=== PATIENT | male | born 1965 | race Caucasian/White ===

== ENCOUNTER 2018-05-25 18:48 | Emergency (ER) | payer BC ==
[~2018-05-25] VITALS: Ht 182.9 cm; Wt 125.0 kg
[2018-05-25] MEDS ORDERED: ONDANSETRON 2MG/ML, 2ML IVPush ONE (19:00)
[2018-05-25] MEDS ORDERED: SODIUM CHLORIDE FLUSH 10ML SYR IVF ONE (19:00)
[2018-05-25] MEDS ORDERED: ONDANSETRON 2MG/ML, 2ML ONE (19:08)
[2018-05-25 19:16] LABS: BASOPHILS # (AUTO) 0.03 x10^3/uL (0-0.1); BASOPHILS % (AUTO) 0 % (0-1); EOSINOPHILS # (AUTO) 0.09 x10^3/uL (0-0.4); EOSINOPHILS % (AUTO) 1 % (1-7); LYMPHOCYTES # (AUTO) 1.15 x10^3/uL (1-3.4); LYMPHOCYTES % (AUTO) 10 % (22-44); MD NO; MEAN CORPUSCULAR HEMOGLOBIN 34.7 pg (27.5-34.5); MEAN CORPUSCULAR HGB CONC 35.2 g/dL (33.2-36.2); MEAN CORPUSCULAR VOLUME 98.6 fL (81-97); MEAN PLATELET VOLUME 8.8 fL (7.4-10.4); MONOCYTES # (AUTO) 0.72 x10^3/uL (0.2-0.8); MONOCYTES % (AUTO) 7 % (2-9); NEUTROPHILS # (AUTO) 9.17 x10^3/uL (1.8-6.8); NEUTROPHILS % (AUTO) 82 % (42-75); PLATELET COUNT 237 x10^3/uL (130-400); RED BLOOD COUNT 4.31 x10^6/uL (4.38-5.82); RED CELL DISTRIBUTION WIDTH 14.1 % (9.4-14.8)
[2018-05-25 19:27] LABS: ALBUMIN 4.4 g/dL (3.4-5.0); ANION GAP 7 mmol/L (5-15); CALCIUM 8.7 mg/dL (8.5-10.1); CHLORIDE 107 mmol/L (98-107); CREATININE 1.25 mg/dL (0.7-1.3)
[2018-05-25 19:49] LABS: MICROSCOPIC AUTO
[2018-05-25 20:01] LABS: CULTURE INDICATED? YES
[2018-05-25] MEDS ORDERED: KETOROLAC 30 MG/1 ML ONE (20:54)
[2018-05-25 20:57] VITALS: BP 108/60
[2018-05-25] MEDS ORDERED: KETOROLAC 30 MG/1 ML IVPush ONE (21:00)
[2018-05-25] MEDS ORDERED: OXYcodone/APAP 5/325MG TABLET ONE (21:45)
[2018-05-25] MEDS ORDERED: OXYcodone/APAP 5/325MG TABLET PO ONE (22:00)
== END 2018-05-25 21:59 | disposition home or self-care (01) ==
LOC: ED 21:50
DX: N13.2 Hydronephrosis with renal and ureteral calculous obstruction (principal); Z87.891 Personal history of nicotine dependence; Z88.5 Allergy status to narcotic agent
CPT/HCPCS: 36415; 74176; 80048; 81001; 82040; 85025; 87086; 96374; 96375; 99285; J1885; J2405

== ENCOUNTER 2021-02-11 23:40 | Inpatient (IN) | payer BC, OTHER ==
[~2021-02-11] VITALS: Ht 182.9 cm; Wt 133.2 kg
--- NOTE | 2021-02-11 23:50 | NUR ---
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
[2021-02-12] MEDS ORDERED: SODIUM CHLORIDE 0.9% 1,000ML IVBOLUS ONE
[2021-02-12] MEDS ORDERED: CEFTRIAXONE 1,000 MG in DEXTROSE 5% 50 ML IVPB ONE
[2021-02-12] MEDS ORDERED: AZITHROMYCIN 500 MG in SODIUM CHLORIDE 0.9% 250 ML IVPB ONE
[2021-02-12] MEDS ORDERED: ACETAMINOPHEN 500 MG TABLET PO ONE
--- NOTE | 2021-02-12 00:05 | NUR ---
RT TO BS AND OPTI-FLOW STARTED PER DR. CASTORENA.
--- NOTE | 2021-02-12 00:07 | NUR ---
40L 60% ON OPTIFLOW.
[2021-02-12] MEDS ORDERED: ACETAMINOPHEN 500 MG TABLET ONE (00:10)
--- NOTE | 2021-02-12 00:17 | NUR ---
AWAITING 2ND SET OF CULTURES PRIOR TO ABX.
[2021-02-12 00:25] LABS: BASOPHILS % (AUTO) 0 % (0-1); EOSINOPHILS % (AUTO) 0 % (1-7); LYMPHOCYTES % (AUTO) 5 % (22-44); MEAN CORPUSCULAR HEMOGLOBIN 34.4 pg (27.5-34.5); MEAN CORPUSCULAR HGB CONC 35.6 g/dL (33.2-36.2); MEAN PLATELET VOLUME 8.4 fL (7.4-10.4); MONOCYTES % (AUTO) 4 % (2-9); NEUTROPHILS % (AUTO) 91 % (42-75); PLATELET COUNT 181 x10^3/uL (130-400); RED CELL DISTRIBUTION WIDTH 14.7 % (9.4-14.8)
--- NOTE | 2021-02-12 00:35 | NUR ---
Break RN: second set of cultures drawn. Antibiotics initiated.
[2021-02-12 00:36] LABS: ANION GAP 11 mmol/L (5-15); CALCIUM 8.2 mg/dL (8.5-10.1); CHLORIDE 96 mmol/L (98-107); CREATININE 1.12 mg/dL (0.7-1.3)
[2021-02-12 00:37] LABS: ALANINE AMINOTRANSFERASE 52 U/L (12-78); ALBUMIN 2.8 g/dL (3.4-5.0)
[2021-02-12 00:41] LABS: ALKALINE PHOSPHATASE 68 U/L (45-117); BILIRUBIN,TOTAL 1.1 mg/dL (0.2-1.0); TOTAL PROTEIN 6.6 g/dL (6.4-8.2); TROPONIN I < 0.015 ng/mL (0.000-0.045)
[2021-02-12] MEDS ORDERED: ONDANSETRON 2MG/ML, 2ML IVPush ONE (01:00)
[2021-02-12] MEDS ORDERED: KETOROLAC 30 MG/1 ML IVPush ONE (01:00)
[2021-02-12] MEDS ORDERED: KETOROLAC 30 MG/1 ML ONE (01:05)
[2021-02-12] MEDS ORDERED: ONDANSETRON 2MG/ML, 2ML ONE (01:05)
--- NOTE | 2021-02-12 01:13 | NUR ---
PT. CONTINUES WITH RAPID RESPIRATIONS. STATES HE FEELS HIS BREATHING IS SOMEWHAT BETTER. PT. SPEAKING IN 1-2 WORD SENTENCES. C/O NAUSEA AND CP R/T COUGHING. MEDICATED PER MAR. DENIES OTHER NEEDS AT THIS TIME. ALL MONITORS REMAIN IN PLACE. ALL SAFETY MEASURES OBSERVED.
[2021-02-12] MEDS ORDERED: ENOXAPARIN 40 MG/0.4 ML SQ SCH (01:30)
[2021-02-12] MEDS ORDERED: LACTATED RINGERS 1,000 ML IV SCH (01:30)
[2021-02-12] MEDS ORDERED: KETOROLAC 30 MG/1 ML IV PRN (01:30)
[2021-02-12] MEDS ORDERED: PHARMACY MAY ADJ FOR RENAL FX MC PRN (01:30)
[2021-02-12] MEDS ORDERED: ONDANSETRON 2MG/ML, 2ML IVPush PRN (01:30)
[2021-02-12] MEDS ORDERED: ONDANSETRON ODT 4 MG PO PRN (01:30)
[2021-02-12] MEDS: CEFTRIAXONE 1,000 MG in DEXTROSE 5% 50 ML IVPB SCH (01:32)
[2021-02-12] MEDS: AZITHROMYCIN 500 MG in SODIUM CHLORIDE 0.9% 250 ML IV SCH (01:32)
[2021-02-12] MEDS ORDERED: PANTOPRAZOLE 40 MG IV ONE (01:36)
[2021-02-12] MEDS ORDERED: ENOXAPARIN 40 MG/0.4 ML ONE (01:36)
[2021-02-12] MEDS: PANTOPRAZOLE 40 MG IV IVPush SCH ×2 (01:45→09:16)
--- NOTE | 2021-02-12 01:51 | NUR ---
MEDICATED PER SEP. PT. HAS VERY FREQUENT DRY HACKING COUGH. SATS ON OPTI FLOW 87-90%. [facility] HAS BEEN IN FOR EVAL. PT. PROVIDED [facility] INCENTIVE SPIROMETER AND EDUCATED ON USE; ABLE TO DEMONSTRATE PROPER USE. ALL MONTIORS REMAIN IN PLACE. ALL SAFETY MEASURES OBSERVED.
--- NOTE | 2021-02-12 01:56 | NUR ---
PT. CONTINUES TO C/O EXTREME NAUSEA. NEW ORDER RECEIVED FOR IM PHENERGAN 12.MG ONCE.
[2021-02-12] MEDS ORDERED: PROMETHAZINE 25 MG/ML, 1ML ONE (01:57)
[2021-02-12] MEDS ORDERED: PROMETHAZINE 25 MG/ML, 1ML IM PRN (02:00)
--- NOTE | 2021-02-12 02:51 | NUR ---
RN ENTERED ROOM TO FIND IV HAD BEEN PULLED OUT AND BLOOD ALL OVER PT. PT. RE-EDUCATED ON USE OF CALL LIGHT PT REPORTS HIS IV CAME OUT(TIP INTACT) WHEN HE WAS STANDING UP TO USE URINAL. PT. VERBALIZED UNDERSTANIDNG OF IMPORTANCE OF CALLING NURSE FOR ASSISTANCE WITH CORDS WHEN USING URINAL. RT WAS ALSO CALLED PT. O2 SAT HAD DROPPED TO 84% AND SUSTAINED THERE FOR ABOUT 7 MINUTES. SETTINGS CHANGED TO 50L WITH 75%O2. SATS NOW UP TO 93-95%. PT. CONTINUES TO APPEAR UNCOMFORTABLE. PT. DIAPHORETIC AND CONTINUES TO C/O NAUSEA. HOSPITAL BED REQUESTED FOR PT.
--- NOTE | 2021-02-12 03:04 | NUR ---
CALL PLACED TO DR. GOLD IN REGARD TO PT. CONTINUED NAUSEA. TP ORDER FOR 10MG REGLAN IVP ONCE.
[2021-02-12] MEDS ORDERED: METOCLOPRAMIDE 5 MG/ML, 2ML ONE (03:07)
[2021-02-12] MEDS ORDERED: METOCLOPRAMIDE 5 MG/ML, 2ML IVPush ONE (03:30)
--- NOTE | 2021-02-12 03:34 | NUR ---
PT. PLACED ON CCU BED AT THIS TIME. PT. REPORTS HE IS NOW FEELING MUCH BETTER R/T COMFORT IN THE NEW BED. PT. ALSO REPORTS NAUSEA HAS SUBSIDED. O2 SAT REMAINS 88-94% ON NEW OPTIFLOW SETTINGS. PT. DENIES OTHER NEEDS. PT. AGREES TO USE CALL LIGHT FOR ASSISTANCE. ALL MONITORS IN PLACE. ALL SAFETY MEASURES OBSERVED.
[2021-02-12 04:27] LABS: MEAN CORPUSCULAR HGB CONC 36.2 g/dL (33.2-36.2); MEAN PLATELET VOLUME 8.1 fL (7.4-10.4); PLATELET COUNT 186 x10^3/uL (130-400); RED BLOOD COUNT 3.55 x10^6/uL (4.38-5.82); RED CELL DISTRIBUTION WIDTH 14.5 % (9.4-14.8)
[2021-02-12 04:34] LABS: HCT (SEDRATE) 34.3 % (39.2-51.8)
[2021-02-12 04:37] LABS: ALANINE AMINOTRANSFERASE 44 U/L (12-78); ALBUMIN 2.4 g/dL (3.4-5.0); ANION GAP 10 mmol/L (5-15); CALCIUM 7.5 mg/dL (8.5-10.1); CHLORIDE 99 mmol/L (98-107); CREATININE 1.04 mg/dL (0.7-1.3)
[2021-02-12 04:44] LABS: ALKALINE PHOSPHATASE 58 U/L (45-117); BILIRUBIN,TOTAL 0.9 mg/dL (0.2-1.0); TOTAL PROTEIN 5.9 g/dL (6.4-8.2)
--- NOTE | 2021-02-12 04:45 | NUR ---
RT TO BS AT THIS TIME. PT. OPTIFLOW SETTING CHANGED TO 90% AND 50L AT THIS TIME.
[2021-02-12 04:58] LABS: C-REACTIVE PROTEIN, QUANT > 19.00 mg/dL (0.02-0.49)
[2021-02-12 05:04] LABS: BAND#(MANUAL) 1.55 x10^3/uL; BANDS%(MANUAL) 15 % (0-7); LYMPH#(MANUAL) 0.72 x10^3/uL (1-3.4); LYMPHS% (MANUAL) 7 % (22-44); MONOS#(MANUAL) 0.62 x10^3/uL (0.3-2.7); MONOS% (MANUAL) 6 % (2-9); SEG#(MANUAL) 7.42 x10^3/uL (1.8-6.8); SEGS% (MANUAL) 72 % (42-75)
[2021-02-12 05:05] LABS: <PLATELET ESTIMATE> ADEQUATE; <PLT MORPHOLOGY> NORMAL PLT MORPH; <RBC MORPHOLOGY> NORMAL
--- NOTE | 2021-02-12 05:36 | NUR ---
PT RESTING ON L SIDE. RR EVEN NON LABORED. VSS. WILL CTM.
--- NOTE | 2021-02-12 06:58 | NUR ---
TOOK REPORT FROM BETTY HOWARD RN ASSUME CARE AT THIS TIME. PT REPORTS JACQUELINE THE IS HAVING A HARD TIME GETTING COMFORTABLE WITH CP ON HIS RIGHT SIDE 2/20 WORSE WITH COUGH.NAD, NO REQUESTS AT THIS TIME. UPDATED ON PLAN OF CARE, AGREES TO PLAN.
[2021-02-12] MEDS ORDERED: REMDESIVIR 200 MG in SODIUM CHLORIDE 0.9% 250 ML IVPB ONE (07:00)
--- NOTE | 2021-02-12 07:21 | NUR ---
Karina [phone] CALLED AND GIVEN PT UPDATE. AWATING CALL FROM [facility] SO PT CAN GO TO ROOM [id number]
--- NOTE | 2021-02-12 07:21 | NUR ---
1ST ATTEMPT TO CALL REPORT
[2021-02-12] MEDS: THIAMINE 100MG TABLET PO SCH ×2 (09:01→20:33)
[2021-02-12] MEDS: POTASSIUM CHLORIDE 20 MEQ PACKET PO SCH (09:01)
[2021-02-12] MEDS: CHOLECALCIFEROL 1,000 UNIT TABLET PO SCH (09:01)
[2021-02-12] MEDS: ZINC SULFATE 220 MG CAPSULE PO SCH (09:01)
[2021-02-12] MEDS: ENOXAPARIN 40 MG/0.4 ML SQ SCH ×2 (09:07→20:34)
[2021-02-12] MEDS: DEXAMETHASONE 4 MG/ML, 1ML IVPush SCH (09:08)
[2021-02-12] MEDS: FUROSEMIDE 20 MG/2 ML IV SCH ×2 (09:14→17:11)
[2021-02-12] MEDS: ASCORBIC ACID 500 MG TABLET PO SCH ×2 (09:14→17:10)
[2021-02-12] MEDS: morphine SULFATE 10 MG/ML, 1ML IV PRN ×2 (09:23→20:33)
[2021-02-12 09:28] VITALS: BP 109/66
[2021-02-12 10:00] VITALS: BP 113/70
[2021-02-12] MEDS ORDERED: TOCILIZUMAB 800 MG in SODIUM CHLORIDE 0.9% 60 ML IVPB ONE (14:00)
[2021-02-12] MEDS: MELATONIN 5 MG TABLET PO SCH (20:33)
[2021-02-13] MEDS: CEFTRIAXONE 1,000 MG in DEXTROSE 5% 50 ML IVPB SCH (01:30)
[2021-02-13 04:00] VITALS: BP 116/75
[2021-02-13 04:19] LABS: MEAN CORPUSCULAR HEMOGLOBIN 34.7 pg (27.5-34.5); MEAN PLATELET VOLUME 8.3 fL (7.4-10.4); PLATELET COUNT 257 x10^3/uL (130-400); RED BLOOD COUNT 3.64 x10^6/uL (4.38-5.82)
[2021-02-13 04:22] LABS: HCT (SEDRATE) 35.1 % (39.2-51.8)
[2021-02-13 04:29] LABS: ALANINE AMINOTRANSFERASE 44 U/L (12-78); ALBUMIN 2.4 g/dL (3.4-5.0); ANION GAP 7 mmol/L (5-15); CALCIUM 8.2 mg/dL (8.5-10.1); CHLORIDE 107 mmol/L (98-107); CREATININE 0.81 mg/dL (0.7-1.3)
[2021-02-13 04:36] LABS: ALKALINE PHOSPHATASE 70 U/L (45-117); BILIRUBIN,TOTAL 0.7 mg/dL (0.2-1.0); TOTAL PROTEIN 6.6 g/dL (6.4-8.2)
[2021-02-13 04:45] LABS: C-REACTIVE PROTEIN, QUANT > 19.00 mg/dL (0.02-0.49)
[2021-02-13 05:07] LABS: <RBC MORPHOLOGY> NORMAL; BAND#(MANUAL) 0.85 x10^3/uL; BANDS%(MANUAL) 9 % (0-7); LYMPH#(MANUAL) 0.38 x10^3/uL (1-3.4); LYMPHS% (MANUAL) 4 % (22-44); MONOS#(MANUAL) 0.28 x10^3/uL (0.3-2.7); MONOS% (MANUAL) 3 % (2-9); OTHER CELLS # (MANUAL) 0.19 x10^3/uL (0-0); OTHER CELLS % (MANUAL) 2 % (0-0); SEG#(MANUAL) 7.71 x10^3/uL (1.8-6.8); SEGS% (MANUAL) 82 % (42-75)
[2021-02-13 05:08] LABS: <PLATELET ESTIMATE> ADEQUATE; <PLT MORPHOLOGY> NORMAL PLT MORPH
[2021-02-13] MEDS: FUROSEMIDE 20 MG/2 ML IV SCH ×2 (08:01→16:46)
[2021-02-13] MEDS: PANTOPRAZOLE 40 MG IV IVPush SCH (08:01)
[2021-02-13] MEDS: REMDESIVIR 100 MG in SODIUM CHLORIDE 0.9% 250 ML IVPB SCH (08:01)
[2021-02-13] MEDS: THIAMINE 100MG TABLET PO SCH ×2 (08:02→20:41)
[2021-02-13] MEDS: CHOLECALCIFEROL 1,000 UNIT TABLET PO SCH (08:02)
[2021-02-13] MEDS: POTASSIUM CHLORIDE 20 MEQ PACKET PO SCH (08:02)
[2021-02-13] MEDS: DEXAMETHASONE 4 MG/ML, 1ML IVPush SCH (08:02)
[2021-02-13] MEDS: ASCORBIC ACID 500 MG TABLET PO SCH ×2 (08:02→16:46)
[2021-02-13] MEDS: ZINC SULFATE 220 MG CAPSULE PO SCH (08:02)
[2021-02-13] MEDS: ENOXAPARIN 40 MG/0.4 ML SQ SCH ×2 (08:03→20:41)
[2021-02-13] MEDS: GUAIFENESIN ER 600 MG TABLET PO SCH ×2 (08:49→20:41)
[2021-02-13] MEDS ORDERED: morphine SULFATE 10 MG/ML, 1ML IV PRN (09:00)
[2021-02-13] MEDS: AZITHROMYCIN 500 MG in SODIUM CHLORIDE 0.9% 250 ML IV SCH (11:27)
[2021-02-13] MEDS: ALBUTEROL HFA 90 MCG/SPRAY INH PRN ×2 (13:56→22:20)
[2021-02-13] MEDS: OXYcodone IR 5MG TABLET PO PRN ×2 (16:57→22:19)
[2021-02-13] MEDS: MELATONIN 5 MG TABLET PO SCH (20:41)
[2021-02-14] MEDS: CEFTRIAXONE 1,000 MG in DEXTROSE 5% 50 ML IVPB SCH (01:01)
[2021-02-14 04:00] VITALS: BP 111/69
[2021-02-14 04:07] LABS: HCT (SEDRATE) 34.2 % (39.2-51.8); MEAN CORPUSCULAR HEMOGLOBIN 34.8 pg (27.5-34.5); MEAN CORPUSCULAR HGB CONC 36.1 g/dL (33.2-36.2); MEAN PLATELET VOLUME 8.5 fL (7.4-10.4); PLATELET COUNT 286 x10^3/uL (130-400); RED CELL DISTRIBUTION WIDTH 14.4 % (9.4-14.8)
[2021-02-14 04:14] LABS: ALANINE AMINOTRANSFERASE 60 U/L (12-78); ALBUMIN 2.2 g/dL (3.4-5.0); ANION GAP 4 mmol/L (5-15); CALCIUM 7.9 mg/dL (8.5-10.1); CHLORIDE 105 mmol/L (98-107); CREATININE 0.78 mg/dL (0.7-1.3)
[2021-02-14 04:21] LABS: ALKALINE PHOSPHATASE 65 U/L (45-117); BILIRUBIN,TOTAL 0.5 mg/dL (0.2-1.0); TOTAL PROTEIN 6.1 g/dL (6.4-8.2)
[2021-02-14 04:25] LABS: <PLATELET ESTIMATE> ADEQUATE; <PLT MORPHOLOGY> NORMAL PLT MORPH; <RBC MORPHOLOGY> NORMAL; BAND#(MANUAL) 0.21 x10^3/uL; BANDS%(MANUAL) 2 % (0-7); LYMPH#(MANUAL) 0.62 x10^3/uL (1-3.4); LYMPHS% (MANUAL) 6 % (22-44); MONOS#(MANUAL) 0.41 x10^3/uL (0.3-2.7); MONOS% (MANUAL) 4 % (2-9); SEG#(MANUAL) 9.06 x10^3/uL (1.8-6.8); SEGS% (MANUAL) 88 % (42-75)
[2021-02-14] MEDS: REMDESIVIR 100 MG in SODIUM CHLORIDE 0.9% 250 ML IVPB SCH (06:33)
[2021-02-14] MEDS: PANTOPRAZOLE 40 MG IV IVPush SCH (08:02)
[2021-02-14] MEDS: ASCORBIC ACID 500 MG TABLET PO SCH ×2 (08:02→17:42)
[2021-02-14] MEDS: FUROSEMIDE 20 MG/2 ML IV SCH ×2 (08:02→17:42)
[2021-02-14] MEDS: GUAIFENESIN ER 600 MG TABLET PO SCH ×2 (08:03→20:55)
[2021-02-14] MEDS: POTASSIUM CHLORIDE 20 MEQ PACKET PO SCH (08:03)
[2021-02-14] MEDS: CHOLECALCIFEROL 1,000 UNIT TABLET PO SCH (08:03)
[2021-02-14] MEDS: DEXAMETHASONE 4 MG/ML, 1ML IVPush SCH (08:03)
[2021-02-14] MEDS: THIAMINE 100MG TABLET PO SCH ×2 (08:04→20:55)
[2021-02-14] MEDS: ENOXAPARIN 40 MG/0.4 ML SQ SCH ×2 (08:05→20:56)
[2021-02-14] MEDS: ZINC SULFATE 220 MG CAPSULE PO SCH (08:05)
[2021-02-14] MEDS: OXYcodone IR 5MG TABLET PO PRN ×3 (08:06→17:42)
[2021-02-14] MEDS ORDERED: ALBUTEROL/IPRATROPIUM 2.5MG/0.5MG, 3 ML NPPB SCH (09:00)
[2021-02-14] MEDS: FLUTICASONE/VILANTEROL 100-25MCG/INH INH SCH (11:30)
[2021-02-14] MEDS: AZITHROMYCIN 500 MG in SODIUM CHLORIDE 0.9% 250 ML IV SCH (11:49)
[2021-02-14] MEDS ORDERED: LACTATED RINGERS 1,000 ML IV SCH (17:30)
[2021-02-14] MEDS: MELATONIN 5 MG TABLET PO SCH (20:55)
[2021-02-15] MEDS: OXYcodone IR 5MG TABLET PO PRN ×3 (01:26→20:36)
[2021-02-15] MEDS: CEFTRIAXONE 1,000 MG in DEXTROSE 5% 50 ML IVPB SCH (01:26)
[2021-02-15 03:45] LABS: MEAN CORPUSCULAR HEMOGLOBIN 34.6 pg (27.5-34.5); MEAN CORPUSCULAR HGB CONC 35.8 g/dL (33.2-36.2); MEAN PLATELET VOLUME 8.5 fL (7.4-10.4); PLATELET COUNT 336 x10^3/uL (130-400); RED BLOOD COUNT 3.66 x10^6/uL (4.38-5.82); RED CELL DISTRIBUTION WIDTH 14.5 % (9.4-14.8)
[2021-02-15 04:00] VITALS: BP 116/77
[2021-02-15 04:09] LABS: ALANINE AMINOTRANSFERASE 77 U/L (12-78); ALBUMIN 2.1 g/dL (3.4-5.0); ANION GAP 7 mmol/L (5-15); CALCIUM 7.7 mg/dL (8.5-10.1); CHLORIDE 103 mmol/L (98-107); CREATININE 0.74 mg/dL (0.7-1.3)
[2021-02-15 04:11] LABS: ALKALINE PHOSPHATASE 64 U/L (45-117); BILIRUBIN,TOTAL 0.5 mg/dL (0.2-1.0); TOTAL PROTEIN 5.9 g/dL (6.4-8.2)
[2021-02-15 05:00] LABS: BAND#(MANUAL) 0.52 x10^3/uL; BANDS%(MANUAL) 6 % (0-7); LYMPH#(MANUAL) 0.86 x10^3/uL (1-3.4); LYMPHS% (MANUAL) 10 % (22-44); METAMYELOCYTES# (MANUAL) 0.17 x10^3/uL (0-0); METAMYELOCYTES% (MANUAL) 2 % (0-1); MONOS#(MANUAL) 0.86 x10^3/uL (0.3-2.7); MONOS% (MANUAL) 10 % (2-9); MYELOCYTES# (MANUAL) 0.26 x10^3/uL (0-0); MYELOCYTES% (MANUAL) 3 % (0-0); SEG#(MANUAL) 5.93 x10^3/uL (1.8-6.8); SEGS% (MANUAL) 69 % (42-75)
[2021-02-15 05:01] LABS: <PLATELET ESTIMATE> ADEQUATE; LARGE PLATELETS 1+
[2021-02-15 05:02] LABS: ANISOCYTOSIS 1+
[2021-02-15] MEDS: REMDESIVIR 100 MG in SODIUM CHLORIDE 0.9% 250 ML IVPB SCH (06:31)
[2021-02-15] MEDS: PANTOPRAZOLE 40 MG IV IVPush SCH (07:49)
[2021-02-15] MEDS: FUROSEMIDE 20 MG/2 ML IV SCH ×2 (07:53→17:04)
[2021-02-15] MEDS: ASCORBIC ACID 500 MG TABLET PO SCH ×2 (07:53→17:03)
[2021-02-15] MEDS: THIAMINE 100MG TABLET PO SCH ×2 (08:43→20:44)
[2021-02-15] MEDS: CHOLECALCIFEROL 1,000 UNIT TABLET PO SCH (08:43)
[2021-02-15] MEDS: GUAIFENESIN ER 600 MG TABLET PO SCH ×2 (08:43→20:44)
[2021-02-15] MEDS: ENOXAPARIN 40 MG/0.4 ML SQ SCH (08:43)
[2021-02-15] MEDS: ZINC SULFATE 220 MG CAPSULE PO SCH (08:44)
[2021-02-15] MEDS: DEXAMETHASONE 4 MG/ML, 1ML IVPush SCH (08:44)
[2021-02-15] MEDS: POTASSIUM CHLORIDE 20 MEQ PACKET PO SCH (08:48)
[2021-02-15] MEDS: FLUTICASONE/VILANTEROL 100-25MCG/INH INH SCH (09:00)
[2021-02-15] MEDS: AZITHROMYCIN 500 MG in SODIUM CHLORIDE 0.9% 250 ML IV SCH (10:24)
[2021-02-15 18:19] VITALS: BP 112/74
[2021-02-15 20:30] VITALS: BP 105/62
[2021-02-15] MEDS: ENOXAPARIN 80 MG/0.8 ML SQ SCH (20:36)
[2021-02-15] MEDS: MELATONIN 5 MG TABLET PO SCH (20:45)
[2021-02-16] MEDS: OXYcodone IR 5MG TABLET PO PRN ×3 (01:02→20:06)
[2021-02-16] MEDS: CEFTRIAXONE 1,000 MG in DEXTROSE 5% 50 ML IVPB SCH (01:03)
[2021-02-16 02:25] VITALS: BP 111/77
[2021-02-16 05:57] LABS: ALBUMIN 2.5 g/dL (3.4-5.0); ANION GAP 6 mmol/L (5-15); CALCIUM 7.8 mg/dL (8.5-10.1); CHLORIDE 102 mmol/L (98-107)
[2021-02-16 06:00] LABS: ALANINE AMINOTRANSFERASE 101 U/L (12-78); ALKALINE PHOSPHATASE 64 U/L (45-117); BILIRUBIN,TOTAL 0.8 mg/dL (0.2-1.0); CREATININE 0.79 mg/dL (0.7-1.3); TOTAL PROTEIN 6.7 g/dL (6.4-8.2)
[2021-02-16 06:09] LABS: MEAN CORPUSCULAR HEMOGLOBIN 34.3 pg (27.5-34.5); MEAN CORPUSCULAR HGB CONC 35.6 g/dL (33.2-36.2); MEAN PLATELET VOLUME 8.6 fL (7.4-10.4); PLATELET COUNT 390 x10^3/uL (130-400); RED BLOOD COUNT 4.25 x10^6/uL (4.38-5.82); RED CELL DISTRIBUTION WIDTH 14.7 % (9.4-14.8)
[2021-02-16 06:24] LABS: BAND#(MANUAL) 0.43 x10^3/uL; BANDS%(MANUAL) 5 % (0-7); EOS#(MANUAL) 0.09 x10^3/uL (0.0-0.4); EOS% (MANUAL) 1 % (1-7); LYMPH#(MANUAL) 1.19 x10^3/uL (1-3.4); LYMPHS% (MANUAL) 14 % (22-44); METAMYELOCYTES# (MANUAL) 0.09 x10^3/uL (0-0); METAMYELOCYTES% (MANUAL) 1 % (0-1); MONOS#(MANUAL) 0.26 x10^3/uL (0.3-2.7); MONOS% (MANUAL) 3 % (2-9); MYELOCYTES# (MANUAL) 0.09 x10^3/uL (0-0); MYELOCYTES% (MANUAL) 1 % (0-0); SEG#(MANUAL) 6.38 x10^3/uL (1.8-6.8); SEGS% (MANUAL) 75 % (42-75)
[2021-02-16 06:25] LABS: <PLATELET ESTIMATE> ADEQUATE; <PLT MORPHOLOGY> NORMAL PLT MORPH; ANISOCYTOSIS 1+; POLYCHROMASIA 1+
[2021-02-16] MEDS: REMDESIVIR 100 MG in SODIUM CHLORIDE 0.9% 250 ML IVPB SCH (07:15)
[2021-02-16] MEDS: FUROSEMIDE 20 MG/2 ML IV SCH ×2 (07:30→17:19)
[2021-02-16] MEDS: FLUTICASONE/VILANTEROL 100-25MCG/INH INH SCH (09:00)
[2021-02-16] MEDS: ASCORBIC ACID 500 MG TABLET PO SCH ×2 (09:21→17:19)
[2021-02-16] MEDS: POTASSIUM CHLORIDE 20 MEQ PACKET PO SCH (09:21)
[2021-02-16] MEDS: ENOXAPARIN 80 MG/0.8 ML SQ SCH ×2 (09:21→20:08)
[2021-02-16] MEDS: PANTOPRAZOLE 40 MG IV IVPush SCH (09:21)
[2021-02-16] MEDS: THIAMINE 100MG TABLET PO SCH ×2 (09:22→20:07)
[2021-02-16] MEDS: ZINC SULFATE 220 MG CAPSULE PO SCH (09:22)
[2021-02-16] MEDS: GUAIFENESIN ER 600 MG TABLET PO SCH ×2 (09:22→20:06)
[2021-02-16] MEDS: CHOLECALCIFEROL 1,000 UNIT TABLET PO SCH (09:22)
[2021-02-16] MEDS: DEXAMETHASONE 4 MG/ML, 1ML IVPush SCH (09:23)
[2021-02-16] MEDS: AZITHROMYCIN 500 MG in SODIUM CHLORIDE 0.9% 250 ML IV SCH (10:00)
[2021-02-16 20:02] VITALS: BP 111/71
[2021-02-16] MEDS: MELATONIN 5 MG TABLET PO SCH (20:07)
[2021-02-16] MEDS: TEMAZEPAM 15 MG CAPSULE PO PRN (23:30)
[2021-02-17 00:37] VITALS: BP 110/72
[2021-02-17] MEDS: CEFTRIAXONE 1,000 MG in DEXTROSE 5% 50 ML IVPB SCH (00:57)
[2021-02-17 05:30] LABS: ALBUMIN 2.6 g/dL (3.4-5.0); CALCIUM 8.1 mg/dL (8.5-10.1)
[2021-02-17 05:34] LABS: ALANINE AMINOTRANSFERASE 105 U/L (12-78); ALKALINE PHOSPHATASE 58 U/L (45-117); BILIRUBIN,TOTAL 0.7 mg/dL (0.2-1.0); CREATININE 0.82 mg/dL (0.7-1.3); TOTAL PROTEIN 6.1 g/dL (6.4-8.2)
[2021-02-17 05:39] LABS: ANION GAP 4 mmol/L (5-15); CHLORIDE 102 mmol/L (98-107)
[2021-02-17 05:47] LABS: BASOPHILS % (AUTO) 0 % (0-1); EOSINOPHILS % (AUTO) 2 % (1-7); LYMPHOCYTES % (AUTO) 13 % (22-44); MEAN PLATELET VOLUME 8.3 fL (7.4-10.4); MONOCYTES % (AUTO) 9 % (2-9); NEUTROPHILS % (AUTO) 76 % (42-75); PLATELET COUNT 399 x10^3/uL (130-400); RED BLOOD COUNT 4.05 x10^6/uL (4.38-5.82); RED CELL DISTRIBUTION WIDTH 14.6 % (9.4-14.8)
[2021-02-17 07:42] VITALS: BP 105/69
[2021-02-17] MEDS: FLUTICASONE/VILANTEROL 100-25MCG/INH INH SCH (09:00)
[2021-02-17] MEDS: AZITHROMYCIN 500 MG in SODIUM CHLORIDE 0.9% 250 ML IV SCH (09:46)
[2021-02-17] MEDS: PANTOPRAZOLE 40 MG IV IVPush SCH (09:49)
[2021-02-17] MEDS: DEXAMETHASONE 4 MG/ML, 1ML IVPush SCH (09:50)
[2021-02-17] MEDS: OXYcodone IR 5MG TABLET PO PRN ×3 (09:50→21:42)
[2021-02-17] MEDS: FUROSEMIDE 20 MG/2 ML IV SCH ×2 (09:50→16:56)
[2021-02-17] MEDS: THIAMINE 100MG TABLET PO SCH ×2 (09:51→21:41)
[2021-02-17] MEDS: ENOXAPARIN 80 MG/0.8 ML SQ SCH ×2 (09:51→21:00)
[2021-02-17] MEDS: ASCORBIC ACID 500 MG TABLET PO SCH ×2 (09:51→16:56)
[2021-02-17] MEDS: GUAIFENESIN ER 600 MG TABLET PO SCH ×2 (09:51→21:40)
[2021-02-17] MEDS: ZINC SULFATE 220 MG CAPSULE PO SCH (09:51)
[2021-02-17] MEDS: CHOLECALCIFEROL 1,000 UNIT TABLET PO SCH (09:51)
[2021-02-17 13:16] VITALS: BP 120/80
[2021-02-17 19:20] VITALS: BP 110/70
[2021-02-17] MEDS: MELATONIN 5 MG TABLET PO SCH (21:00)
[2021-02-18 01:18] VITALS: BP 116/76
[2021-02-18] MEDS: CEFTRIAXONE 1,000 MG in DEXTROSE 5% 50 ML IVPB SCH (02:04)
[2021-02-18 06:31] LABS: MEAN CORPUSCULAR HEMOGLOBIN 34.2 pg (27.5-34.5); MEAN CORPUSCULAR HGB CONC 35.2 g/dL (33.2-36.2); MEAN PLATELET VOLUME 8.4 fL (7.4-10.4); PLATELET COUNT 403 x10^3/uL (130-400); RED BLOOD COUNT 4.01 x10^6/uL (4.38-5.82); RED CELL DISTRIBUTION WIDTH 14.7 % (9.4-14.8)
[2021-02-18 06:50] LABS: ALANINE AMINOTRANSFERASE 114 U/L (12-78); ALBUMIN 2.5 g/dL (3.4-5.0); ANION GAP 4 mmol/L (5-15); CALCIUM 7.6 mg/dL (8.5-10.1); CHLORIDE 101 mmol/L (98-107); CREATININE 0.73 mg/dL (0.7-1.3)
[2021-02-18 06:52] LABS: ALKALINE PHOSPHATASE 58 U/L (45-117); BILIRUBIN,TOTAL 0.6 mg/dL (0.2-1.0)
[2021-02-18 07:07] LABS: ANISOCYTOSIS 1+; BAND#(MANUAL) 0.23 x10^3/uL; BANDS%(MANUAL) 3 % (0-7); LYMPH#(MANUAL) 1.05 x10^3/uL (1-3.4); LYMPHS% (MANUAL) 14 % (22-44); METAMYELOCYTES# (MANUAL) 0.08 x10^3/uL (0-0); METAMYELOCYTES% (MANUAL) 1 % (0-1); MONOS% (MANUAL) 8 % (2-9); SEG#(MANUAL) 5.55 x10^3/uL (1.8-6.8); SEGS% (MANUAL) 74 % (42-75)
[2021-02-18 07:08] LABS: <PLATELET ESTIMATE> INCREASED; <PLT MORPHOLOGY> NORMAL PLT MORPH; POLYCHROMASIA 1+
[2021-02-18 08:11] VITALS: BP 124/77
[2021-02-18] MEDS: ENOXAPARIN 80 MG/0.8 ML SQ SCH ×2 (08:14→20:24)
[2021-02-18] MEDS: PANTOPRAZOLE 40MG TABLET PO SCH (08:14)
[2021-02-18] MEDS: ZINC SULFATE 220 MG CAPSULE PO SCH (08:14)
[2021-02-18] MEDS: GUAIFENESIN ER 600 MG TABLET PO SCH ×2 (08:14→20:20)
[2021-02-18] MEDS: DEXAMETHASONE 4 MG/ML, 1ML IVPush SCH (08:14)
[2021-02-18] MEDS: ASCORBIC ACID 500 MG TABLET PO SCH ×2 (08:14→16:07)
[2021-02-18] MEDS: FUROSEMIDE 20 MG/2 ML IV SCH ×2 (08:14→16:07)
[2021-02-18] MEDS: THIAMINE 100MG TABLET PO SCH ×2 (08:14→20:20)
[2021-02-18] MEDS: CHOLECALCIFEROL 1,000 UNIT TABLET PO SCH (08:14)
[2021-02-18] MEDS: FLUTICASONE/VILANTEROL 100-25MCG/INH INH SCH (12:00)
[2021-02-18 13:02] VITALS: BP 104/67
[2021-02-18 19:53] VITALS: BP 112/71
[2021-02-18] MEDS: OXYcodone IR 5MG TABLET PO PRN (20:23)
[2021-02-18] MEDS: MELATONIN 5 MG TABLET PO SCH (20:24)
[2021-02-19] MEDS: CEFTRIAXONE 1,000 MG in DEXTROSE 5% 50 ML IVPB SCH (01:09)
[2021-02-19 02:04] VITALS: BP 100/62
[2021-02-19 06:52] LABS: MEAN CORPUSCULAR HEMOGLOBIN 34.5 pg (27.5-34.5); MEAN CORPUSCULAR HGB CONC 35.8 g/dL (33.2-36.2); PLATELET COUNT 318 x10^3/uL (130-400); RED BLOOD COUNT 3.95 x10^6/uL (4.38-5.82); RED CELL DISTRIBUTION WIDTH 15.2 % (9.4-14.8)
[2021-02-19 07:03] LABS: CHLORIDE 105 mmol/L (98-107)
[2021-02-19 07:10] LABS: ALANINE AMINOTRANSFERASE 97 U/L (12-78); ALBUMIN 2.5 g/dL (3.4-5.0); ALKALINE PHOSPHATASE 58 U/L (45-117); ANION GAP 6 mmol/L (5-15); BILIRUBIN,TOTAL 0.4 mg/dL (0.2-1.0); CALCIUM 7.6 mg/dL (8.5-10.1); CREATININE 0.77 mg/dL (0.7-1.3); TOTAL PROTEIN 5.7 g/dL (6.4-8.2)
[2021-02-19] MEDS: ZINC SULFATE 220 MG CAPSULE PO SCH (08:06)
[2021-02-19] MEDS: CHOLECALCIFEROL 1,000 UNIT TABLET PO SCH (08:06)
[2021-02-19] MEDS: ASCORBIC ACID 500 MG TABLET PO SCH ×2 (08:06→16:43)
[2021-02-19 08:07] LABS: BAND#(MANUAL) 0.12 x10^3/uL; BANDS%(MANUAL) 2 % (0-7); LYMPH#(MANUAL) 1.26 x10^3/uL (1-3.4); LYMPHS% (MANUAL) 21 % (22-44); METAMYELOCYTES# (MANUAL) 0.06 x10^3/uL (0-0); METAMYELOCYTES% (MANUAL) 1 % (0-1); MONOS#(MANUAL) 0.42 x10^3/uL (0.3-2.7); MONOS% (MANUAL) 7 % (2-9); MYELOCYTES# (MANUAL) 0.06 x10^3/uL (0-0); MYELOCYTES% (MANUAL) 1 % (0-0); REACTIVE LYMPHS # (MANUAL) 0.06 x10^3/uL (0-0); REACTIVE LYMPHS % (MANUAL) 1 % (0-0); SEG#(MANUAL) 4.02 x10^3/uL (1.8-6.8); SEGS% (MANUAL) 67 % (42-75)
[2021-02-19] MEDS: PANTOPRAZOLE 40MG TABLET PO SCH (08:07)
[2021-02-19] MEDS: GUAIFENESIN ER 600 MG TABLET PO SCH ×2 (08:07→21:33)
[2021-02-19] MEDS: THIAMINE 100MG TABLET PO SCH ×2 (08:07→21:33)
[2021-02-19 08:08] LABS: <PLATELET ESTIMATE> ADEQUATE; <PLT MORPHOLOGY> NORMAL PLT MORPH; <RBC MORPHOLOGY> NORMAL
[2021-02-19] MEDS: DEXAMETHASONE 4 MG/ML, 1ML IVPush SCH (08:10)
[2021-02-19] MEDS: FUROSEMIDE 20 MG/2 ML IV SCH ×2 (08:11→16:42)
[2021-02-19] MEDS: ENOXAPARIN 80 MG/0.8 ML SQ SCH ×2 (08:13→21:34)
[2021-02-19 08:25] VITALS: BP 120/50
[2021-02-19] MEDS: FLUTICASONE/VILANTEROL 100-25MCG/INH INH SCH (11:12)
[2021-02-19 12:03] VITALS: BP 96/60
[2021-02-19] MEDS: GUAIFENESIN/COD200MG-20MG/10ML LIQUID PO PRN (14:26)
[2021-02-19 20:24] VITALS: BP 94/63
[2021-02-19] MEDS: MELATONIN 5 MG TABLET PO SCH (21:00)
[2021-02-19] MEDS: OXYcodone IR 5MG TABLET PO PRN (21:42)
[2021-02-20] MEDS: TEMAZEPAM 15 MG CAPSULE PO PRN (01:24)
[2021-02-20] MEDS: CEFTRIAXONE 1,000 MG in DEXTROSE 5% 50 ML IVPB SCH (01:24)
[2021-02-20 01:27] VITALS: BP 113/76
[2021-02-20 05:55] LABS: BASOPHILS % (AUTO) 1 % (0-1); EOSINOPHILS % (AUTO) 1 % (1-7); LYMPHOCYTES % (AUTO) 14 % (22-44); MEAN CORPUSCULAR HEMOGLOBIN 34.1 pg (27.5-34.5); MEAN CORPUSCULAR HGB CONC 35.1 g/dL (33.2-36.2); MEAN PLATELET VOLUME 8.5 fL (7.4-10.4); MONOCYTES % (AUTO) 9 % (2-9); NEUTROPHILS % (AUTO) 75 % (42-75); PLATELET COUNT 402 x10^3/uL (130-400); RED BLOOD COUNT 4.13 x10^6/uL (4.38-5.82); RED CELL DISTRIBUTION WIDTH 14.8 % (9.4-14.8)
[2021-02-20 06:19] LABS: CHLORIDE 101 mmol/L (98-107)
[2021-02-20 06:26] LABS: ALANINE AMINOTRANSFERASE 95 U/L (12-78); ALBUMIN 2.7 g/dL (3.4-5.0); ALKALINE PHOSPHATASE 59 U/L (45-117); ANION GAP 3 mmol/L (5-15); BILIRUBIN,TOTAL 0.6 mg/dL (0.2-1.0); CALCIUM 8.6 mg/dL (8.5-10.1); CREATININE 0.86 mg/dL (0.7-1.3); TOTAL PROTEIN 6.2 g/dL (6.4-8.2)
[2021-02-20] MEDS: FUROSEMIDE 20 MG/2 ML IV SCH ×2 (07:32→16:32)
[2021-02-20] MEDS: DEXAMETHASONE 4 MG/ML, 1ML IVPush SCH (07:34)
[2021-02-20] MEDS: THIAMINE 100MG TABLET PO SCH ×2 (07:37→19:49)
[2021-02-20] MEDS: PANTOPRAZOLE 40MG TABLET PO SCH (07:37)
[2021-02-20] MEDS: FLUTICASONE/VILANTEROL 100-25MCG/INH INH SCH (07:38)
[2021-02-20] MEDS: GUAIFENESIN ER 600 MG TABLET PO SCH ×2 (07:38→19:49)
[2021-02-20] MEDS: ASCORBIC ACID 500 MG TABLET PO SCH ×2 (07:38→16:32)
[2021-02-20] MEDS: ZINC SULFATE 220 MG CAPSULE PO SCH (07:38)
[2021-02-20] MEDS: ENOXAPARIN 80 MG/0.8 ML SQ SCH ×2 (07:38→19:49)
[2021-02-20] MEDS: CHOLECALCIFEROL 1,000 UNIT TABLET PO SCH (07:38)
[2021-02-20 07:55] VITALS: BP 106/68
[2021-02-20] MEDS: GUAIFENESIN/COD200MG-20MG/10ML LIQUID PO PRN (12:14)
[2021-02-20] MEDS: ACETAMINOPHEN 325 MG TABLET PO PRN (12:14)
[2021-02-20 13:02] VITALS: BP 114/63
[2021-02-20 18:35] VITALS: BP 114/77
[2021-02-20] MEDS: MELATONIN 5 MG TABLET PO SCH (19:49)
[2021-02-20] MEDS: OXYcodone IR 5MG TABLET PO PRN (21:17)
[2021-02-21 01:33] VITALS: BP 110/57
[2021-02-21 05:43] LABS: BASOPHILS % (AUTO) 2 % (0-1); EOSINOPHILS % (AUTO) 0 % (1-7); LYMPHOCYTES % (AUTO) 11 % (22-44); MEAN CORPUSCULAR HEMOGLOBIN 34.6 pg (27.5-34.5); MEAN CORPUSCULAR HGB CONC 35.4 g/dL (33.2-36.2); MEAN PLATELET VOLUME 8.9 fL (7.4-10.4); MONOCYTES % (AUTO) 8 % (2-9); NEUTROPHILS % (AUTO) 80 % (42-75); PLATELET COUNT 328 x10^3/uL (130-400); RED BLOOD COUNT 3.79 x10^6/uL (4.38-5.82); RED CELL DISTRIBUTION WIDTH 14.9 % (9.4-14.8)
[2021-02-21 05:53] LABS: CHLORIDE 106 mmol/L (98-107)
[2021-02-21 06:00] LABS: ALANINE AMINOTRANSFERASE 79 U/L (12-78); ALBUMIN 2.5 g/dL (3.4-5.0); ALKALINE PHOSPHATASE 78 U/L (45-117); ANION GAP 6 mmol/L (5-15); BILIRUBIN,TOTAL 0.4 mg/dL (0.2-1.0); CREATININE 0.82 mg/dL (0.7-1.3); TOTAL PROTEIN 5.5 g/dL (6.4-8.2)
[2021-02-21] MEDS: GUAIFENESIN ER 600 MG TABLET PO SCH ×2 (07:47→20:03)
[2021-02-21] MEDS: PANTOPRAZOLE 40MG TABLET PO SCH (07:47)
[2021-02-21] MEDS: ZINC SULFATE 220 MG CAPSULE PO SCH (07:47)
[2021-02-21] MEDS: POTASSIUM CHLORIDE 20 MEQ TAB.ER.PRT PO SCH ×2 (07:48→16:25)
[2021-02-21] MEDS: ASCORBIC ACID 500 MG TABLET PO SCH ×2 (07:48→16:25)
[2021-02-21] MEDS: THIAMINE 100MG TABLET PO SCH ×2 (07:48→20:03)
[2021-02-21] MEDS: CHOLECALCIFEROL 1,000 UNIT TABLET PO SCH (07:48)
[2021-02-21] MEDS: ENOXAPARIN 80 MG/0.8 ML SQ SCH ×2 (07:49→20:03)
[2021-02-21] MEDS: DEXAMETHASONE 4 MG/ML, 1ML IVPush SCH (07:49)
[2021-02-21] MEDS: FUROSEMIDE 20 MG/2 ML IV SCH ×2 (07:52→16:25)
[2021-02-21] MEDS: FLUTICASONE/VILANTEROL 100-25MCG/INH INH SCH (09:48)
[2021-02-21] MEDS: ACETAMINOPHEN 325 MG TABLET PO PRN ×2 (09:48→16:25)
[2021-02-21 09:50] VITALS: BP 120/82
[2021-02-21 12:15] VITALS: BP 130/82
[2021-02-21 19:57] VITALS: BP 115/74
[2021-02-21] MEDS: MELATONIN 5 MG TABLET PO SCH (20:03)
[2021-02-21] MEDS: TEMAZEPAM 15 MG CAPSULE PO PRN (23:21)
[2021-02-21] MEDS: OXYcodone IR 5MG TABLET PO PRN (23:21)
[2021-02-22 01:00] VITALS: BP 120/75
[2021-02-22 06:26] LABS: BASOPHILS % (AUTO) 1 % (0-1); EOSINOPHILS % (AUTO) 0 % (1-7); LYMPHOCYTES % (AUTO) 14 % (22-44); MEAN CORPUSCULAR HEMOGLOBIN 35.2 pg (27.5-34.5); MEAN CORPUSCULAR HGB CONC 35.6 g/dL (33.2-36.2); MEAN PLATELET VOLUME 8.7 fL (7.4-10.4); MONOCYTES % (AUTO) 9 % (2-9); NEUTROPHILS % (AUTO) 76 % (42-75); PLATELET COUNT 319 x10^3/uL (130-400); RED BLOOD COUNT 3.65 x10^6/uL (4.38-5.82); RED CELL DISTRIBUTION WIDTH 14.8 % (9.4-14.8)
[2021-02-22 06:36] LABS: CHLORIDE 108 mmol/L (98-107)
[2021-02-22 06:45] LABS: ALANINE AMINOTRANSFERASE 78 U/L (12-78); ALBUMIN 2.6 g/dL (3.4-5.0); ALKALINE PHOSPHATASE 62 U/L (45-117); ANION GAP 4 mmol/L (5-15); BILIRUBIN,TOTAL 0.3 mg/dL (0.2-1.0); CALCIUM 8.2 mg/dL (8.5-10.1); CREATININE 0.76 mg/dL (0.7-1.3); TOTAL PROTEIN 5.7 g/dL (6.4-8.2)
[2021-02-22 08:00] VITALS: BP 116/81
[2021-02-22] MEDS: DEXAMETHASONE 4 MG/ML, 1ML IVPush SCH (08:03)
[2021-02-22] MEDS: FUROSEMIDE 20 MG/2 ML IV SCH ×2 (08:03→17:03)
[2021-02-22] MEDS: GUAIFENESIN ER 600 MG TABLET PO SCH ×2 (08:04→20:55)
[2021-02-22] MEDS: FLUTICASONE/VILANTEROL 100-25MCG/INH INH SCH (08:04)
[2021-02-22] MEDS: ZINC SULFATE 220 MG CAPSULE PO SCH (08:04)
[2021-02-22] MEDS: CHOLECALCIFEROL 1,000 UNIT TABLET PO SCH (08:04)
[2021-02-22] MEDS: ASCORBIC ACID 500 MG TABLET PO SCH (08:04)
[2021-02-22] MEDS: PANTOPRAZOLE 40MG TABLET PO SCH (08:04)
[2021-02-22] MEDS: THIAMINE 100MG TABLET PO SCH (08:04)
[2021-02-22] MEDS: ENOXAPARIN 80 MG/0.8 ML SQ SCH ×2 (08:04→20:56)
[2021-02-22 13:52] VITALS: BP 118/76
[2021-02-22 19:02] VITALS: BP 117/74
[2021-02-22] MEDS: MELATONIN 5 MG TABLET PO SCH (20:55)
[2021-02-22] MEDS: OXYcodone IR 5MG TABLET PO PRN (21:10)
[2021-02-23 01:11] VITALS: BP 118/67
[2021-02-23] MEDS: TEMAZEPAM 15 MG CAPSULE PO PRN (01:19)
[2021-02-23 06:29] LABS: BASOPHILS % (AUTO) 0 % (0-1); EOSINOPHILS % (AUTO) 0 % (1-7); LYMPHOCYTES % (AUTO) 14 % (22-44); MEAN CORPUSCULAR HEMOGLOBIN 34.4 pg (27.5-34.5); MEAN CORPUSCULAR HGB CONC 34.8 g/dL (33.2-36.2); MEAN PLATELET VOLUME 8.7 fL (7.4-10.4); MONOCYTES % (AUTO) 9 % (2-9); NEUTROPHILS % (AUTO) 77 % (42-75); PLATELET COUNT 308 x10^3/uL (130-400); RED BLOOD COUNT 3.84 x10^6/uL (4.38-5.82)
[2021-02-23 06:34] LABS: ALBUMIN 2.7 g/dL (3.4-5.0); ANION GAP 5 mmol/L (5-15); CALCIUM 8.7 mg/dL (8.5-10.1); CHLORIDE 104 mmol/L (98-107)
[2021-02-23 06:37] LABS: ALANINE AMINOTRANSFERASE 79 U/L (12-78); ALKALINE PHOSPHATASE 56 U/L (45-117); BILIRUBIN,TOTAL 0.5 mg/dL (0.2-1.0); CREATININE 0.82 mg/dL (0.7-1.3); TOTAL PROTEIN 5.9 g/dL (6.4-8.2)
[2021-02-23 07:43] VITALS: BP 130/83
[2021-02-23] MEDS: PANTOPRAZOLE 40MG TABLET PO SCH (08:18)
[2021-02-23] MEDS: FUROSEMIDE 20 MG/2 ML IV SCH ×2 (08:18→18:04)
[2021-02-23] MEDS: FLUTICASONE/VILANTEROL 100-25MCG/INH INH SCH (08:19)
[2021-02-23] MEDS: GUAIFENESIN ER 600 MG TABLET PO SCH ×2 (08:20→20:21)
[2021-02-23] MEDS: ENOXAPARIN 80 MG/0.8 ML SQ SCH ×2 (08:20→20:22)
[2021-02-23] MEDS: ACETAMINOPHEN 325 MG TABLET PO PRN (09:33)
[2021-02-23 12:46] VITALS: BP 129/77
[2021-02-23 20:16] VITALS: BP 129/67
[2021-02-23] MEDS: MELATONIN 5 MG TABLET PO SCH (20:22)
[2021-02-24] MEDS: TEMAZEPAM 15 MG CAPSULE PO PRN (00:38)
[2021-02-24 00:48] VITALS: BP 115/64
[2021-02-24 06:26] LABS: MEAN CORPUSCULAR HEMOGLOBIN 34.8 pg (27.5-34.5); MEAN PLATELET VOLUME 8.9 fL (7.4-10.4); PLATELET COUNT 277 x10^3/uL (130-400); RED BLOOD COUNT 3.97 x10^6/uL (4.38-5.82); RED CELL DISTRIBUTION WIDTH 15.6 % (9.4-14.8)
[2021-02-24 06:47] LABS: CHLORIDE 105 mmol/L (98-107)
[2021-02-24 06:53] LABS: BAND#(MANUAL) 0.06 x10^3/uL; BANDS%(MANUAL) 1 % (0-7); EOS#(MANUAL) 0.06 x10^3/uL (0.0-0.4); EOS% (MANUAL) 1 % (1-7); LYMPH#(MANUAL) 1.54 x10^3/uL (1-3.4); LYMPHS% (MANUAL) 27 % (22-44); METAMYELOCYTES# (MANUAL) 0.06 x10^3/uL (0-0); METAMYELOCYTES% (MANUAL) 1 % (0-1); MONOS#(MANUAL) 0.91 x10^3/uL (0.3-2.7); MONOS% (MANUAL) 16 % (2-9); SEG#(MANUAL) 3.08 x10^3/uL (1.8-6.8); SEGS% (MANUAL) 54 % (42-75)
[2021-02-24 06:54] LABS: <PLATELET ESTIMATE> ADEQUATE; <PLT MORPHOLOGY> NORMAL PLT MORPH
[2021-02-24 06:55] LABS: ANISOCYTOSIS 1+; POLYCHROMASIA 1+
[2021-02-24 07:03] LABS: ALANINE AMINOTRANSFERASE 77 U/L (12-78); ALBUMIN 2.7 g/dL (3.4-5.0); ALKALINE PHOSPHATASE 63 U/L (45-117); ANION GAP 5 mmol/L (5-15); BILIRUBIN,TOTAL 0.4 mg/dL (0.2-1.0); CALCIUM 8.7 mg/dL (8.5-10.1); CREATININE 0.88 mg/dL (0.7-1.3); TOTAL PROTEIN 5.8 g/dL (6.4-8.2)
[2021-02-24] MEDS: GUAIFENESIN ER 600 MG TABLET PO SCH ×2 (09:45→20:34)
[2021-02-24] MEDS: PANTOPRAZOLE 40MG TABLET PO SCH (09:45)
[2021-02-24] MEDS: FUROSEMIDE 20 MG/2 ML IV SCH ×2 (09:45→16:46)
[2021-02-24] MEDS: FLUTICASONE/VILANTEROL 100-25MCG/INH INH SCH (09:46)
[2021-02-24] MEDS: ENOXAPARIN 80 MG/0.8 ML SQ SCH ×2 (09:46→20:34)
[2021-02-24] MEDS: ACETAMINOPHEN 325 MG TABLET PO PRN ×2 (09:50→16:45)
[2021-02-24 09:52] VITALS: BP 107/73
[2021-02-24 16:50] VITALS: BP 120/74
[2021-02-24 20:29] VITALS: BP 114/73
[2021-02-24] MEDS: MELATONIN 5 MG TABLET PO SCH (20:34)
[2021-02-25 00:31] VITALS: BP 117/75
[2021-02-25 06:17] LABS: MEAN CORPUSCULAR HEMOGLOBIN 34.8 pg (27.5-34.5); MEAN CORPUSCULAR HGB CONC 34.8 g/dL (33.2-36.2); MEAN PLATELET VOLUME 8.8 fL (7.4-10.4); PLATELET COUNT 296 x10^3/uL (130-400); RED BLOOD COUNT 4.06 x10^6/uL (4.38-5.82); RED CELL DISTRIBUTION WIDTH 15.7 % (9.4-14.8)
[2021-02-25 06:30] LABS: CHLORIDE 106 mmol/L (98-107)
[2021-02-25 06:37] LABS: ALANINE AMINOTRANSFERASE 75 U/L (12-78); ALBUMIN 2.8 g/dL (3.4-5.0); ALKALINE PHOSPHATASE 81 U/L (45-117); ANION GAP 6 mmol/L (5-15); BILIRUBIN,TOTAL 0.3 mg/dL (0.2-1.0); CALCIUM 8.4 mg/dL (8.5-10.1); CREATININE 0.86 mg/dL (0.7-1.3); TOTAL PROTEIN 5.8 g/dL (6.4-8.2)
[2021-02-25 06:50] LABS: <PLATELET ESTIMATE> ADEQUATE; <PLT MORPHOLOGY> NORMAL PLT MORPH; ANISOCYTOSIS 1+; BASOS% (MANUAL) 2 % (0-1); LYMPH#(MANUAL) 1.04 x10^3/uL (1-3.4); LYMPHS% (MANUAL) 20 % (22-44); METAMYELOCYTES% (MANUAL) 2 % (0-1); MONOS#(MANUAL) 0.57 x10^3/uL (0.3-2.7); MONOS% (MANUAL) 11 % (2-9); POLYCHROMASIA 1+; SEG#(MANUAL) 3.38 x10^3/uL (1.8-6.8); SEGS% (MANUAL) 65 % (42-75)
[2021-02-25] MEDS: FUROSEMIDE 20 MG/2 ML IV SCH ×2 (08:12→16:43)
[2021-02-25] MEDS: PANTOPRAZOLE 40MG TABLET PO SCH (08:12)
[2021-02-25] MEDS: GUAIFENESIN ER 600 MG TABLET PO SCH ×2 (08:13→20:49)
[2021-02-25] MEDS: FLUTICASONE/VILANTEROL 100-25MCG/INH INH SCH (08:14)
[2021-02-25 08:16] VITALS: BP 115/81
[2021-02-25] MEDS: ENOXAPARIN 80 MG/0.8 ML SQ SCH ×2 (08:24→20:49)
[2021-02-25 11:32] VITALS: BP 107/69
[2021-02-25] MEDS: ACETAMINOPHEN 325 MG TABLET PO PRN (11:35)
[2021-02-25 13:51] VITALS: BP 137/85
[2021-02-25] MEDS ORDERED: OMNIPAQUE 350 MG/ML, 100ML BOTTLE ONE (15:44)
[2021-02-25 20:02] VITALS: BP 119/77
[2021-02-25] MEDS: MELATONIN 5 MG TABLET PO SCH (20:49)
[2021-02-25] MEDS: OXYcodone IR 5MG TABLET PO PRN (20:52)
[2021-02-26 01:54] VITALS: BP 104/65
[2021-02-26 05:34] LABS: BASOPHILS % (AUTO) 4 % (0-1); EOSINOPHILS % (AUTO) 2 % (1-7); LYMPHOCYTES % (AUTO) 33 % (22-44); MEAN CORPUSCULAR HEMOGLOBIN 34.7 pg (27.5-34.5); MEAN CORPUSCULAR HGB CONC 34.8 g/dL (33.2-36.2); MEAN PLATELET VOLUME 8.5 fL (7.4-10.4); MONOCYTES % (AUTO) 15 % (2-9); NEUTROPHILS % (AUTO) 46 % (42-75); PLATELET COUNT 251 x10^3/uL (130-400); RED BLOOD COUNT 4.08 x10^6/uL (4.38-5.82); RED CELL DISTRIBUTION WIDTH 15.6 % (9.4-14.8)
[2021-02-26 05:36] LABS: D-DIMER 0.36 ug/mlFEU (0.00-0.52)
[2021-02-26 05:43] LABS: CHLORIDE 104 mmol/L (98-107)
[2021-02-26 05:57] LABS: ALANINE AMINOTRANSFERASE 83 U/L (12-78); ALBUMIN 2.9 g/dL (3.4-5.0); ALKALINE PHOSPHATASE 58 U/L (45-117); ANION GAP 4 mmol/L (5-15); BILIRUBIN,TOTAL 0.6 mg/dL (0.2-1.0); CALCIUM 8.6 mg/dL (8.5-10.1); CREATININE 0.91 mg/dL (0.7-1.3)
[2021-02-26 07:54] VITALS: BP 147/76
[2021-02-26] MEDS: FLUTICASONE/VILANTEROL 100-25MCG/INH INH SCH (08:26)
[2021-02-26] MEDS: FUROSEMIDE 20 MG/2 ML IV SCH ×2 (08:26→16:54)
[2021-02-26] MEDS: GUAIFENESIN ER 600 MG TABLET PO SCH ×2 (08:27→20:59)
[2021-02-26] MEDS: PANTOPRAZOLE 40MG TABLET PO SCH (08:27)
[2021-02-26] MEDS: ENOXAPARIN 80 MG/0.8 ML SQ SCH ×2 (08:27→21:00)
[2021-02-26] MEDS: ACETAMINOPHEN 325 MG TABLET PO PRN (08:34)
[2021-02-26 14:47] VITALS: BP 111/79
[2021-02-26 19:54] VITALS: BP 136/82
[2021-02-26] MEDS: MELATONIN 5 MG TABLET PO SCH (20:59)
[2021-02-27 01:36] VITALS: BP 129/66
[2021-02-27 07:32] LABS: BASOPHILS % (AUTO) 1 % (0-1); EOSINOPHILS % (AUTO) 2 % (1-7); LYMPHOCYTES % (AUTO) 28 % (22-44); MEAN CORPUSCULAR HEMOGLOBIN 34.4 pg (27.5-34.5); MEAN CORPUSCULAR HGB CONC 34.9 g/dL (33.2-36.2); MEAN PLATELET VOLUME 8.6 fL (7.4-10.4); MONOCYTES % (AUTO) 16 % (2-9); NEUTROPHILS % (AUTO) 54 % (42-75); PLATELET COUNT 263 x10^3/uL (130-400); RED BLOOD COUNT 4.17 x10^6/uL (4.38-5.82); RED CELL DISTRIBUTION WIDTH 15.6 % (9.4-14.8)
[2021-02-27 07:35] LABS: ALBUMIN 3.2 g/dL (3.4-5.0); ANION GAP 5 mmol/L (5-15); CALCIUM 8.5 mg/dL (8.5-10.1); CHLORIDE 102 mmol/L (98-107)
[2021-02-27 07:39] LABS: ALANINE AMINOTRANSFERASE 90 U/L (12-78); ALKALINE PHOSPHATASE 58 U/L (45-117); BILIRUBIN,TOTAL 0.9 mg/dL (0.2-1.0); CREATININE 0.86 mg/dL (0.7-1.3)
[2021-02-27 07:50] VITALS: BP 102/69
[2021-02-27] MEDS: FLUTICASONE/VILANTEROL 100-25MCG/INH INH SCH (07:52)
[2021-02-27] MEDS: GUAIFENESIN ER 600 MG TABLET PO SCH (07:52)
[2021-02-27] MEDS: FUROSEMIDE 20 MG/2 ML IV SCH ×2 (07:52→16:47)
[2021-02-27] MEDS: PANTOPRAZOLE 40MG TABLET PO SCH (07:52)
[2021-02-27] MEDS: ENOXAPARIN 80 MG/0.8 ML SQ SCH (07:52)
[2021-02-27] MEDS ORDERED: FLUT1AER INH (11:22)
[2021-02-27] MEDS ORDERED: MELA5TAB14 PO (11:22)
[2021-02-27] MEDS ORDERED: CHOL1CAP6 PO (11:22)
[2021-02-27 13:41] VITALS: BP 100/69
== END 2021-02-27 19:13 | disposition home or self-care (01) | DRG 177 ==
LOC: ED 02-12 00:10 → SUATTDRO 02-12 01:05 → EDIP 02-12 01:53 → CCU 02-12 08:34 → 3N 02-15 18:12 → 3E 02-24 13:36
PROVIDERS: ADMIT Student in an Organized Health Care Education/Training Program; ATTEND Family Medicine
PROC: XW033E5 Introduction of Remdesivir Anti-infective into Peripheral Vein, Percutaneous Approach, New Technology Group 5 (ICD-10-PCS; principal; 2021-02-12)
DX: U07.1 COVID-19 (principal); J96.01 Acute respiratory failure with hypoxia; J12.82 Pneumonia due to coronavirus disease 2019; E87.2 Acidosis; E87.1 Hypo-osmolality and hyponatremia; E66.01 Morbid (severe) obesity due to excess calories; E88.09 Other disorders of plasma-protein metabolism, not elsewhere classified; Z68.39 Body mass index [BMI] 39.0-39.9, adult; Z87.891 Personal history of nicotine dependence; Z88.5 Allergy status to narcotic agent
CPT/HCPCS: 36415; 36600; 71045; 71275; 80053; 82306; 82607; 82728; 82803; 83605; 83615; 83970; 84145; 84443; 84484; 85025; 85379; 85384; 85651; 86140; 87040; 87070; 87081; 87205; 93005; 93970; 94640; 96365; 96367; 96375; G0378; J0456; J0696; J1100; J1650; J1885; J2405; J2550; Q0162; Q9967; U0005; C9113; J1940; J2270; J2765; J3262; J7030; J7050; J7120; U0003